=== PATIENT | female | born 1950 | race Caucasian/White ===

== ENCOUNTER 2018-10-08 09:13 | Day surgery (SDC) | payer MEDICARE ==
--- NOTE | 2018-10-08 08:33 | HP ---
DATE OF SURGERY: 10/08/2018 HISTORY OF PRESENT ILLNESS: The patient is a 68 year-old with no prior colonoscopy. No gross bloody stools. No change in bowel movements. No pain. Family history of diverticular disease. He did have great-aunt with breast cancer and colon cancer. She is in need of screening colonoscopy as she has not had one in the past. There is a question whether she had a positive Cologuard test as well. PAST MEDICAL HISTORY: Hypertension and some reflux. PAST SURGICAL HISTORY: Right knee surgery. Hysterectomy. D&C. Cholecystectomy in the past. MEDICATIONS: Metoprolol, hydrochlorothiazide, vitamin D, Naprosyn, Biotin, ranitidine. ALLERGIES: NKDA. FAMILY HISTORY: Family history of diabetes, heart disease, lung disease, hypertension, diverticular disease. He did have great-aunt with breast cancer and colon cancer. SOCIAL HISTORY: No alcohol abuse. REVIEW OF SYSTEMS: Fourteen systems reviewed per admission assessment. No chest pain or palpitations otherwise pertinent for as noted above. No gross bloody stools. PHYSICAL EXAMINATION: GENERAL: No acute distress. HEENT: Sclerae nonicteric. NECK: No JVD. CHEST: Equal excursion, nonlabored breathing. CVS: Regular rate and rhythm. ABDOMEN: Soft. No peritoneal signs. EXTREMITIES: No significant edema. NEURO: Alert, oriented, moving extremities symmetrically. No gross motor deficits noted. RECTAL: Deferred timed to endoscopy exam. IMPRESSION: No prior colonoscopy. She is in need of screening colonoscopy. There is question whether she had positive Cologuard in the past. Either way she is in need of screening colonoscopy. General risk of bleeding, infection, risk of bowel injury or perforation possibly requiring open procedure, risk of missed or nondiagnosis or incomplete exam possibly requiring barium enema, other studies or procedures, general risk of anesthesia or sedation, risk of bowel prep but not limited to. She understands and agrees to the planned procedure, will proceed with outpatient screening colonoscopy under MAC anesthesia.
[~2018-10-08 09:13] MED LIST: Lactated Ringers 1,000 ML IV ONE; Lactated Ringers 1,000 ML IV SCH
[2018-10-08] MEDS ORDERED: DIPRIVAN 200 MG/20 ML IV ONE (09:14)
[2018-10-08 13:00] VITALS: BP 135/58; PULSE 58; O2SAT 94
--- NOTE | 2018-10-08 14:18 | OP ---
SURGERY DATE/TIME: 10/08/2018 1120 PREOPERATIVE DIAGNOSIS: Need for screening colonoscopy. POSTOPERATIVE DIAGNOSES: 1) Colon polyp. 2) Diverticulosis. 3) Adequate prep. 4) Grade II internal and external hemorrhoids. PROCEDURES: 1) Colonoscopy to terminal ileum. 2) Retrograde ileoscopy. 3) Hot snare polypectomy of cecal polyp. 4) Hot biopsy descending colon polyp. 5) Hot biopsy raised lesion sigmoid colon, rectosigmoid colon and rectum. SURGEON: Dr. Sushil Moreno. ANESTHESIA: MAC. ESTIMATED BLOOD LOSS: Minimal. INDICATIONS: As noted above. Risks and benefits explained in detail but not limited to and consent obtained. DESCRIPTION OF PROCEDURE AND FINDINGS: The patient is taken to the operating room. MAC anesthesia was introduced. After official time out and no disagreement with planned procedure, digital rectal exam revealed some internal and external hemorrhoids. Otherwise no signs of palpable rectal masses. Video colonoscope inserted and passed up through the slightly tortuous sigmoid, descending, transverse and ascending colon. The scope was able to be passed around to the cecum. Appendiceal orifice and valve well visualized. Scope was able to be passed up the terminal ileum. Retrograde ileoscopy was grossly unremarkable. Scope was slowly and carefully withdrawn. She had some liquidy and semi-solid stool that had been suctioned irrigated as well as possible but again overall adequate prep. There was noted to be a 3 to 4 mm polyp adjacent to the appendiceal orifice in the cecum this was removed with hot snare polypectomy with brief bursts of cautery. Good hemostasis noted. Otherwise another small polyp elevated well away from the bowel wall with brief bursts of cautery accomplished. Polyp removed. It was retrieved in polyp trap according to the staff. Small polyp in the ascending colon removed with hot biopsy forceps with brief bursts of cautery. Good hemostasis was noted. The scope is slowly and carefully withdrawn over the next 12 minutes. Throughout the colon stopping in sigmoid colon where a small raised lesion versus hyperplastic lesion removed with hot biopsy forceps with brief bursts of cautery as well as in the rectosigmoid colon as well as another small raised lesion in the rectum, hyperplastic lesion versus early polyp. These were all removed with hot biopsy forceps with brief bursts of cautery. Good hemostasis noted. Otherwise she had some internal and external hemorrhoids. She had some diverticulosis. There were no signs of any large polyps, masses or obstructing lesions. Again, the prep overall was adequate. Findings discussed with the family out in the waiting area. She was transferred to recovery in stable condition.
== END 2018-10-08 12:55 | disposition home or self-care (01) ==
LOC: SDC 09:13
PROVIDERS: ATTEND Surgery
DX: Z12.11 Encounter for screening for malignant neoplasm of colon (principal); K57.30 Diverticulosis of large intestine without perforation or abscess without bleeding; D12.0 Benign neoplasm of cecum; D12.2 Benign neoplasm of ascending colon; K63.5 Polyp of colon; D12.8 Benign neoplasm of rectum; K64.1 Second degree hemorrhoids; K64.4 Residual hemorrhoidal skin tags; Z80.3 Family history of malignant neoplasm of breast; Z80.0 Family history of malignant neoplasm of digestive organs
CPT/HCPCS: J2704